=== PATIENT | female | born 1975 | race Caucasian/White ===

== ENCOUNTER 2023-12-13 16:17 | Emergency (ER) | payer OTHER ==
[2023-12-13 16:52] VITALS: BP 127/80; PULSE 74; RESP 20; TEMP 98.3; BMI 27.4
[2023-12-13] MEDS ORDERED: ACETAMINOPHEN 500 MG TABLET (FP) ONE (17:24)
[2023-12-13] MEDS: ACETAMINOPHEN 500 MG TABLET (FP) PO ONE (17:26)
== END 2023-12-13 19:22 | disposition home or self-care (01) ==
LOC: JERFT 16:17
DX: M79.644 Pain in right finger(s) (principal); R09.81 Nasal congestion; R05.9 Cough, unspecified; M77.8 Other enthesopathies, not elsewhere classified; Z20.822 Contact with and (suspected) exposure to COVID-19
CPT/HCPCS: 0241U-QW; 71046-TC-FY; 73130-TC-RT-FY; 99284-25

== ENCOUNTER 2024-12-02 09:17 | Emergency (ER) | payer OTHER ==
[2024-12-02 09:32] VITALS: BP 115/64; PULSE 77; RESP 18; TEMP 98.5; BMI 27.4
[2024-12-02] MEDS ORDERED: METHOCARBAMOL 500 MG TABLET ONE (10:27)
[2024-12-02] MEDS ORDERED: ACETAMINOPHEN 500 MG TABLET (FP) ONE (10:27)
[2024-12-02] MEDS ORDERED: IBUPROFEN 400 MG TABLET (FP) PO ONE (10:27)
[2024-12-02] MEDS: METHOCARBAMOL 500 MG TABLET PO ONE (10:31)
[2024-12-02] MEDS: IBUPROFEN 400 MG TABLET (FP) PO ONE (10:31)
[2024-12-02] MEDS: ACETAMINOPHEN 500 MG TABLET (FP) PO ONE (10:31)
== END 2024-12-02 11:34 | disposition home or self-care (01) ==
LOC: JERFT 09:17
DX: S76.812A Strain of other specified muscles, fascia and tendons at thigh level, left thigh, initial encounter (principal); R10.32 Left lower quadrant pain; X58.XXXA Exposure to other specified factors, initial encounter
CPT/HCPCS: 73502-TC-LT-FY; 99283-25